=== PATIENT | female | born 1995 | race Caucasian/White ===

== ENCOUNTER → 2018-04-24 | Outpatient (REF) | payer BC ==
[~2018-04-24] MED LIST: BC; CIP500 PO; IBU800 PO; ONDA4TAB PO; PER PO; [UNRECOGNIZED DRUG - OTHER]
== END ==
LOC: ZZSENDIN 13:08
PROVIDERS: ATTEND Obstetrics & Gynecology
DX: Z32.00 Encounter for pregnancy test, result unknown (principal)
CPT/HCPCS: 84702

== ENCOUNTER → 2018-05-11 | Outpatient (CLI) | payer BC ==
[~2018-05-11] MED LIST changes: +FLU60SYR36 IM; +PREN-127 PO
[2018-05-11 11:24] LABS: PLATELET COUNT, AUTOMATED 360 K/uL (150-450)
== END ==
LOC: LAB 11:03
PROVIDERS: ATTEND Student in an Organized Health Care Education/Training Program
DX: Z34.91 Encounter for supervision of normal pregnancy, unspecified, first trimester (principal); R82.79 Other abnormal findings on microbiological examination of urine
CPT/HCPCS: 36415; 81001; 85025; 86592; 86703; 86762; 86850; 86900; 86901; 87088; 87340

== ENCOUNTER → 2018-05-25 | Outpatient (CLI) | payer BC ==
[~2018-05-25] MED LIST changes: +HYDR-653 PO; +MISO200T59 PO
== END ==
LOC: LAB 08:10
PROVIDERS: ATTEND Student in an Organized Health Care Education/Training Program
DX: O02.1 Missed abortion (principal)
CPT/HCPCS: 36415; 84702

== ENCOUNTER 2018-05-27 12:35 | Day surgery (SDC) | payer BC, OTHER ==
[~2018-05-27] VITALS: Ht 162.6 cm; Wt 63.0 kg
[~2018-05-27 12:35] MED LIST changes: +DOXYCYCLINE HYCL 100 MG TAB PO ONE; +FAMOTIDINE 20 MG TAB PO ONE; +LIDOCAINE/SOD BICARB 8.4% SYR ID ONE; +MIDAZOLAM 2 MG/2 ML VIAL IVP PRN; +NORMOSOL R SOLN(*) 1000 ML BAG 1,000 ML IV PRN
[2018-05-27 13:22] VITALS: BP 113/81
[2018-05-27 13:22] LABS: PLATELET COUNT, AUTOMATED 305 K/uL (150-450)
[2018-05-27] MEDS ORDERED: PROPOFOL EMUL(*) 10MG/ML 20 ML 20 ML ONE ×2 (13:46→15:04)
[2018-05-27] MEDS ORDERED: ONDANSETRON 4 MG/2 ML VIAL ONE (13:46)
[2018-05-27] MEDS ORDERED: KETAMINE HCL 200 MG/20 ML MDV ONE (13:47)
[2018-05-27] MEDS ORDERED: METHYLERGONOVINE MAL 0.2MG/ML ONE (13:57)
[2018-05-27] MEDS ORDERED: LR(*) 1000 ML BAG 1,000 ML IV ONE (15:31)
[2018-05-27] MEDS ORDERED: ONDANSETRON 4 MG/2 ML VIAL IVP PRN (15:35)
--- NOTE | 2018-05-27 15:47 | Post Operative Note ---
Operative Note - [employer] Operative Day Date: May 27, 2018 Time: 15:35 Physicians Surgeon: Arcadio Pryor Anesthesia: General Anesthesia Diagnosis Pre-Op Diagnosis: 23 y/o @ 8-1/7 weeks gestation Missed Post-Op Diagnosis: Same Procedure Findings: Cervix dilated with minimal bleeding noted from os. Pt Uterus sounded to 8 cm. POC easily removed with suction currette. Minimal bleeding post operatively. Procedure(s): Suction D&C Specimen Removed:(Maybe N/A): POC Complications: 0 known Fluids Fluids: 950 cc u/o 200 Estimated Blood Loss: 20 Dictated Date OP Note Dictated: May 27, 2018 Time OP Note Dictated: 15:47 ARCADIO PRYOR DO May 27, 2018 15:47
[2018-05-27] MEDS ORDERED: DOXY-229 PO (15:50)
[2018-05-27] MEDS ORDERED: HYDR-653 PO (15:50)
--- NOTE | 2018-05-27 15:52 | OB/GYN Discharge Summary ---
Discharge Summary Lates Vital Signs Vital Signs Date Time Temp Pulse Resp B/P (MAP) Pulse Ox O2 Delivery O2 Flow Rate FiO2 05/27/18 15:45 55 16 97 05/27/18 13:22 99.2 113/81 (92) Room Air Weight (Pounds): 139 Result Diagram: 05/27/18 1313 Condition: Improved Discharge: Home Home Meds Active Scripts Hydrocodone Bit/Acetaminophen (NORCO 5-325 TABLET) 1 Each Tablet, 1 EACH PO Q4- 6H PRN for pain, #6 TAB 0 Refills Prov:ARCADIO EATON DO 05/27/18 Misoprostol (CYTOTEC) 200 Mcg Tablet, 800 MCG PO NOW, #8 TAB 1 Refill 4 tablets PO now. If no bleeding can repeat dose in 4 hours. Prov:ARCADIO EATON DO 05/25/18 Hydrocodone Bit/Acetaminophen (NORCO 5-325 TABLET) 1 Each Tablet, 1 EACH PO Q6H for PAIN, #6 TAB Prov:ARCADIO EATON DO 05/25/18 Reported Medications Vits W-Ca,Fe,Fa(<1MG) ( VITAMINS) 1 Each Tablet, 1 EACH PO DAILY, TAB 05/11/18 Follow up with: [facility] [place] [phone], Dr. Eaton [phone] Follow up in: 6 wks PP or PO, 2 wks PO Discharge Diet: As Tolerates Discharge Activity: As Tolerates, Pelvic Rest ARCADIO EATON DO May 27, 2018 15:51
[2018-05-27] MEDS ORDERED: APAP/HYDROCODONE 325/5 TAB PO ONE (15:55)
[2018-05-27 16:12] VITALS: BP 105/60
[2018-05-27 16:29] VITALS: BP 107/66
[2018-05-27 16:31] VITALS: BP 107/69
--- NOTE | 2018-05-27 16:52 | OPERATIVE REPORT 1 ---
EVENT DATE: May 27, 2018 SURGEON: David Pyror DO ANESTHESIOLOGIST: Power Leslie MD ANESTHESIA: General anesthesia. PREOPERATIVE DIAGNOSES 1. A 23-year-old 1, para 0, at 8-1/7 weeks' gestation. 2. Missed . POSTOPERATIVE DIAGNOSES 1. A 23-year-old 1, para 0, at 8-1/7 weeks' gestation. 2. Missed . PROCEDURE PERFORMED Suction dilatation and curettage. FINDINGS Cervical dilated with minimal bleeding on initial exam. Patient's uterus sounded to approximately 8 cm. Products of conception easily removed with suction curette. Minimal bleeding postoperatively. ESTIMATED BLOOD LOSS 20 mL URINE OUTPUT 200 mL INTRAVENOUS FLUIDS 950 mL COMPLICATIONS None known. CONDITION Stable to recovery and then home. INDICATIONS AND CONSENT Patient is a 23-year-old 1, para 0, at 8-1/7 weeks' gestation who initially presented earlier this week for a new OB exam. She was noted to have a that measured 8-1/7 weeks by ultrasound that was expected to be 8- 5/7 weeks with no heart tones noted on ultrasound. Patient was counseled on different options and proceeded with medical options. Patient was given medications. I was unable to successfully complete the miscarriage with medications. Patient opted to proceed with suction D and C. She was counseled appropriately, signed the appropriate consents, and presented to the operating room. DESCRIPTION OF PROCEDURE Patient was taken to the operating room where she was placed in dorsal supine position. She had undergone general anesthesia. With general anesthesia achieved, she was then placed in the dorsal lithotomy position. She was then prepped and draped in the usual sterile manner. A sterile speculum was placed in the vagina, and the cervix was visualized. It was grasped with a single- toothed tenaculum. Uterus was sounded to be 8 cm. It was sequentially dilated from a 6 to a 9 Hegar. With the cervix dilated, the 8 cm suction curette was easily placed through the cervix. Once at the fundus, the suction was turned on, and the suction curette was moved in a circumferential manner from the fundus to the cervix with products of conception being noted within the suction curette. This was done three times with minimal bleeding noted. A sharp curette was gently used until uterine cry was placed. It only required one 360 circumferential pass of the suction curette to achieve uterine cry. At this point, a suction curette was placed back in to remove any products from the sharp curetting. With the suction curette removed, the bleeding was observed and noted to be minimal from the cervix. At this point, the tenaculum was removed from the cervix. Pressure was applied to get hemostasis from the tenaculum sites. The patient was then cleaned, awoken, and transferred to the recovery room in stable condition. MARÍA
[2018-05-27] MEDS ORDERED: IBUPROFEN 800 MG TAB PO SCH (17:00)
== END 2018-05-27 15:45 | disposition home or self-care (01) ==
LOC: OR 12:35
PROVIDERS: ATTEND Student in an Organized Health Care Education/Training Program
DX: O02.1 Missed abortion (principal); Z3A.08 8 weeks gestation of pregnancy
CPT/HCPCS: 59820; 84702; 85025; 88305; J2250; J2405; J2704; J3490; J2210

== ENCOUNTER → 2018-06-11 | Outpatient (CLI) | payer BC, OTHER ==
[~2018-06-11] MED LIST changes: +DOXY-229 PO; -DOXYCYCLINE HYCL 100 MG TAB PO ONE; -FAMOTIDINE 20 MG TAB PO ONE; -LIDOCAINE/SOD BICARB 8.4% SYR ID ONE; -MIDAZOLAM 2 MG/2 ML VIAL IVP PRN; -NORMOSOL R SOLN(*) 1000 ML BAG 1,000 ML IV PRN
== END ==
LOC: LAB 13:35
PROVIDERS: ATTEND Student in an Organized Health Care Education/Training Program
DX: O02.1 Missed abortion (principal)
CPT/HCPCS: 84702

== ENCOUNTER → 2018-06-23 | Outpatient (CLI) | payer BC, OTHER ==
[~2018-06-23] MED LIST changes: +TRAZ50TA34 PO
== END ==
LOC: LAB 11:19
PROVIDERS: ATTEND Student in an Organized Health Care Education/Training Program
DX: O03.9 Complete or unspecified spontaneous abortion without complication (principal)
CPT/HCPCS: 36415; 84702

== ENCOUNTER → 2018-09-04 | Outpatient (CLI) | payer BC, OTHER | LOC: LAB 10:04 | PROVIDERS: ATTEND Student in an Organized Health Care Education/Training Program | DX: Z32.00 Encounter for pregnancy test, result unknown (principal) | CPT/HCPCS: 36415; 84702 ==

== ENCOUNTER → 2018-09-07 | Outpatient (CLI) | payer BC, OTHER ==
[~2018-09-07] MED LIST changes: -TRAZ50TA34 PO; +TRAZ50TA52 PO
== END ==
LOC: LAB 11:19
PROVIDERS: ATTEND Student in an Organized Health Care Education/Training Program
DX: Z32.00 Encounter for pregnancy test, result unknown (principal)
CPT/HCPCS: 36415; 84702

== ENCOUNTER → 2018-09-18 | Outpatient (CLI) | payer BC, OTHER | LOC: LAB 08:46 | PROVIDERS: ATTEND Obstetrics & Gynecology | DX: O20.0 Threatened abortion (principal) | CPT/HCPCS: 36415; 84702 ==

== ENCOUNTER → 2018-09-20 | Outpatient (CLI) | payer BC, OTHER | LOC: LAB 17:06 | PROVIDERS: ATTEND Obstetrics & Gynecology | DX: O20.0 Threatened abortion (principal) | CPT/HCPCS: 36415; 84702 ==

== ENCOUNTER → 2018-10-06 | Outpatient (CLI) | payer BC, OTHER ==
[~2018-10-06] MED LIST changes: +PROG200C16 PV
== END ==
LOC: LAB 08:06
PROVIDERS: ATTEND Student in an Organized Health Care Education/Training Program
DX: Z34.91 Encounter for supervision of normal pregnancy, unspecified, first trimester (principal)
CPT/HCPCS: 87491; 87591